=== PATIENT | female | born 1990 | race Two or more races ===

== ENCOUNTER 2023-10-19 13:02 | Outpatient (AMB) | payer OTHER, SELFPAY ==
--- NOTE | 2023-10-19 13:05 | A.OFFPC_ITS ---
Vital Signs 10/19/23 13:14 Height 5 ft 6.34 in Weight 137 lb 2 oz BMI 21.9 BP 102/74 Blood Pressure Location Rt brachial Position Sitting Respiration 12 Pulse 100 Pulse Source Pulse Oximeter Temp 98.7 F Temp Source Oral Pulse Oximetry (%) 97 Oxygen Delivery Method Room Air Intake Visit Reasons: GUS[facility] [employer]-[facility] C[facility] Intake Note: New patient visit Turkey Cleaner Required: No Is last menstrual period known: Yes Last menstrual period: 10/03/23 Allergies No Known Allergies Allergy (Verified 10/19/23 13:09) Tobacco use date assessed: 10/19/23 Dental Screening Dental Screen Date: 10/19/23 Did you have a dental visit in the last 12 months?: Yes Did you have a dental problem in the last 6 months where you did not have access to dental care?: No Was dental information given to patient?: Patient has dentist HPI HPI Comments History of Present Illness Details This is a 32-year-old female who presents to [facility]. It has been years since she had her last physical exam. She has 2 concerns to discuss. She endorses changes to her menstrual periods. She used to get a 5 day period. Two years ago she started to get spotting for a week followed by heavy bleeding for 2-3 days. She discuss this at her annual gynecological exam earlier this year. They recommended starting control. During the past 2 months she spots for 2 weeks, she has heavy bleeding for 2 days followed by a few more days of spotting. She is looking for evaluation. She has taken home tests that were negative. She has menstrual cramps that are at baseline since she was a teenager. She would like referral for evaluation for possible ADHD and autism. She has dealt with mental health issues for as long as she can remember. In 2009 she tried Zoloft for anxiety and depression. It made her feel tired. She does not recall it helped with anything. She endorses racing thoughts. She has a lot of things she needs to do and wants to do but there is a ?invisible wall? that prohibits her from being productive. She does not feel depressed. She also notices differences between her and other people in social situations. She has difficulty maintaining eye contact and holding conversations. She plans to schedule an eye exam. Dental is up-to-date. She works as a [employer], and she denies having a tetanus vaccination within the past 10 years. Tdap administered today. ROS: Constitutional: No unexplained weight loss, fever, chills or night sweats. Eyes: No vision changes, blurry vision, double vision, eye pain, eye redness, eye discharge. ENT: No hearing loss, sneezing, congestion, runny nose or sore throat. Respiratory: No shortness of breath, cough or sputum production. Cardiovascular: No chest pain, chest pressure or chest discomfort. No palpitations or pedal edema. Gastrointestinal: No anorexia, nausea, vomiting or diarrhea. No abdominal pain or blood in stool. Genitourinary: No dysuria, hematuria, urinary frequency. Neurologic: No headache, dizziness, syncope, unilateral weakness, ataxia, numbness or tingling in the extremities. Musculoskeletal: No muscle pain, back pain, joint pain or swelling. Hematologic/Lymphatics: No easy bruising. No painful lymph nodes. Skin: No rash or itching. Endocrine: No cold or heat intolerance. No polyuria or polydipsia. Psychiatric: No depression.. No SI/HI. Physical exam: Constitutional: Alert, in no distress. Head: Normocephalic. Eyes: Pupils are equal, round and reactive to light. Extraocular muscles intact. Ear, Nose and Throat: Canals clear. TMs normal. Normal nasal mucosa. No nasal discharge. No oral lesions. Neck: Supple, Full range of motion. No lymphadenopathy. No palpable thyroid masses. Respiratory: Clear to auscultation. Cardiovascular: S1 S2 regular. No murmurs. Gastrointestinal: Abdomen soft, non-tender, non-distended. Normal bowel sounds. No palpable masses. Neurologic: No focal neurological deficits. Symmetric patellar reflexes. Moves all extremities spontaneously. Sensation intact bilaterally. Skin: No rashes or lesions. Musculoskeletal: No gross deformities. Normal range of motion. Extremities: Warm and well perfused. No clubbing, cyanosis or edema. 3+ peripheral pulses bilaterally. Psychiatric: Cooperative [facility] Medical History (Updated 10/19/23 @ 15:08 by REMINGTON Marcus) Anxiety Behavior concern Difficulty concentrating Abnormal uterine bleeding (AUB) Surgical History (Updated 10/19/23 @ 13:33 by REMINGTON Marcus) History of wisdom tooth extraction History of mandibular surgery Family History (Updated 10/19/23 @ 14:52 by Louise Finch CMA) Mother Hypercholesteremia Benign brain tumor Father HTN (hypertension) Other FHx: mental illness Social History (Updated 10/19/23 @ 13:13 by Louise Finch CMA) Housing: Other Housing Other:: Mobile home Patient Tobacco Use Status: Never used Tobacco e-Cigarette/Vaping Use: Never Used Second Hand Smoke Exposure: Yes (past) service: No Current occupational status: employed Current occupation: clinical office technician Current occupational exposures/hazards: Yes (Rabies, brucellosis, cat scratch fever, ringworm, scabies, ect ) Cognitive needs: No Hearing needs: No Vision needs: Yes (glasses) Female Reproductive History Menstrual Date of last menstrual period: 10/03/23 Questionnaire PHQ-9 Over the last 2 weeks, how often have you been bothered by any of the following problems? 1. Little interest or pleasure in doing things: several days 2. Feeling down, depressed, or hopeless: several days 3. Trouble falling or staying asleep, or sleeping too much: several days 4. Feeling tired or having little energy: several days 5. Poor appetite or overeating: several days 6. Feeling bad about yourself - or that you are a failure or have let yourself or your family down: several days 7. Trouble concentrating on things, such as reading the newspaper or watching television: nearly every day 8. Moving or speaking so slowly that other people could have noticed. Or the opposite - being so fidgety or restless that you have been moving around a lot more than usual: more than half the days 9. Thoughts that you would be better off or of hurting yourself in some way: not at all Total score: 11 Depression Screening Interpretation: Positive (referral placed) Depression Screening Follow-up: Other Depression Screening Done: Yes 36417 - PHQ-9 Billing: Yes Source: Developed by Drs. Kuldip Villaseñor, Shazia Aguilar, Rashawn Crum and colleagues, with an educational alexander from [employer]. AUDIT C Alcohol Use Questionnaire (AUDIT-C) 1. How often do you have a drink containing alcohol?: Never 3. How often do you have six or more drinks on one occasion?: Never Total Score: 0 JAMARI-7 AMB Questionnaire JAMARI-7 Date JAMARI - 7 assessed: 10/19/23 Feeling nervous, anxious, or on edge: 3 = Nearly every day Not being able to stop or control worryin = Several days Worrying too much about different things: 2 = More than half the days Trouble relaxin = Several days Being so restless that it is hard to sit still: 2 = More than half the days Becoming easily annoyed or irritable: 1 = Several days Feeling afraid as if something awful might happen: 1 = Several days Total JAMARI-7 score (0-4 normal; 5-9 mild; 10-14 moderate; 15-21 severe): 11 Source: Developed by Drs. Kuldip Villaseñor, Shazia Aguilar, Rashawn Crum and colleagues, with an educational alexander from [employer]. JAMARI-7 Assessment Billing JAMARI-7 Assessment Tool: JAMARI-7 Assessment 66612 Physical exam (Primary Care) Vital Signs: Last Vital Signs Temp 98.7 F 10/19/23 13:14 Pulse 100 10/19/23 13:14 Resp 12 10/19/23 13:14 BP 102/74 10/19/23 13:14 Pulse Ox 97 10/19/23 13:14 Oxygen Delivery Method Room Air 10/19/23 13:14 BMI result Body Mass Index 21.9 Tobacco/Smoking Status: Tobacco use Status Tobacco use date assessed 10/19/23 10/19/23 13:17 Patient Tobacco Use Status Never used Tobacco 10/19/23 13:17 e-Cigarette/Vaping Use Never Used 10/19/23 13:17 PHQ-9: PHQ-9 Score PHQ-9: Total score 11 10/19/23 14:52 Depression Screening Interpretation: Positive (referral placed) Depression Screening Follow-up: Other Assessment and Plan Assessment & Plan (1) Routine physical examination: Code(s): Z00.00 - Encounter for general adult medical examination without abnormal findings Plan: Patient is seen today for a routine physical. As part of this visit we reviewed the following issues, which are considered and essential part of preventative health in this age group: - Annual Associate Professor [employer] exam - Blood pressure screening - Cholesterol screening - Osteoporosis prevention including calcium/vitamin D intake, weight bearing exercise & smoking cessation - Nutritional and exercise counseling - Screening for depression - Prevention of and/or testing for infectious diseases - declined screening - Education about skin cancer - Recommendations about immunizations - Recommendation of an eye exam - Screening for substance abuse (2) Abnormal uterine bleeding (AUB): Code(s): N93.9 - Abnormal uterine and vaginal bleeding, unspecified Plan: Check TSH and pelvic u/s then follow up with operational test mechanic at [facility]. (3) Difficulty concentrating: Code(s): R41.840 - Attention and concentration deficit Plan: Referred to behavioral health services. (4) Behavior concern: Code(s): R46.89 - Other symptoms and signs involving appearance and behavior Plan: Referred to behavioral health services. (5) Anxiety: Code(s): F41.9 - Anxiety disorder, unspecified Orders: Orders TDaP Immunization Today Z23 - Encounter for immunization Lipid Panel Today Z13.6 - Encounter for screening for cardiovascular disorders TSH reflex Free T4 Today E66.9 - Obesity, unspecified, F41.9 - Anxiety disorder, unspecified, N93.9 - Abnormal uterine and vaginal bleeding, unspecified, R41.840 - Attention and concentration deficit, R46.89 - Other symptoms and signs involving appearance and behavior Comprehensive Met. Panel Today F41.9 - Anxiety disorder, unspecified, N93.9 - Abnormal uterine and vaginal bleeding, unspecified, R41.840 - Attention and concentration deficit, R46.89 - Other symptoms and signs involving appearance and behavior Complete Blood Count no Diff Today F41.9 - Anxiety disorder, unspecified, N93.9 - Abnormal uterine and vaginal bleeding, unspecified, R41.840 - Attention and concentration deficit, R46.89 - Other symptoms and signs involving appearance and behavior US pelvic and transvaginal Today N93.9 - Abnormal uterine and vaginal bleeding, unspecified HCG Quantitative Today N93.9 - Abnormal uterine and vaginal bleeding, unspecified Referrals Psychology Referral F41.9 - Anxiety disorder, unspecified, N93.9 - Abnormal uterine and vaginal bleeding, unspecified, R41.840 - Attention and concentration deficit, R46.89 - Other symptoms and signs involving appearance and behavior Medications: New Boostrix Tdap (diphth,pertus(acell),tetanus) 0.5 mL IM ONCE 0.5 mL 0RF NS Z23 - Encounter for immunization Coding Level of Care Code New Pt Prev Care 18-39yr([id number] Diagnoses Routine physical examination Z00.00 Abnormal uterine bleeding (AUB) N93.9 Difficulty concentrating R41.840 Behavior concern R46.89 Anxiety F41.9 Additional Codes JAMARI-7 Assessment Billing - JAMARI-7 Assessment Tool: JAMARI-7 Assessment 53970 ([id number])
[2023-10-19 13:14] VITALS: BP 102/74; PULSE 100; RESP 12; TEMP 37.1; O2SAT 97; BMI 21.9
== END 2023-10-19 13:59 | disposition home or self-care (01) ==
PROVIDERS: PCP Physician Assistant Medical; Visit Provider Physician Assistant Medical
DX: Z00.00 Encounter for general adult medical examination without abnormal findings (principal); N93.9 Abnormal uterine and vaginal bleeding, unspecified; R41.840 Attention and concentration deficit; Z23 Encounter for immunization; R46.89 Other symptoms and signs involving appearance and behavior; F41.9 Anxiety disorder, unspecified
CPT/HCPCS: 90471; 90715; 99385

== ENCOUNTER 2023-10-27 11:01 | Outpatient (REF) | payer OTHER, SELFPAY ==
[2023-10-27 12:55] LABS: Hematocrit 39.5 % (37.0-47.0); Hemoglobin 13.2 g/dl (12.0-16.0); Mean Corpuscular HGB Conc 33.4 g/dl (31.0-35.0); Mean Corpuscular Hemoglobin 29.8 pg (27.0-33.0); Mean Corpuscular Volume 89.2 fL (80.0-98.0); Mean Platelet Volume 11.7 fL (9.4-12.3); Platelet Count 254 X10*3/uL (160-400); Red Blood Count 4.43 X10*6/uL (4.20-5.50); Red Cell Distribution Width 12.6 % (11.0-16.0); White Blood Count 4.6 X10*3/uL (4.8-10.8)
[2023-10-27 13:28] LABS: Alanine Aminotransferase 12 U/L (0-31); Albumin Level 4.3 g/dL (3.5-5.0); Alkaline Phosphatase 66 U/L (39-117); Anion Gap 12 (12-20); Aspartate Amino Transferase 15 U/L (5-31); Bilirubin Total 0.6 mg/dL (0.0-1.0); Blood Urea Nitrogen 10 mg/dL (9-16); Calcium 9.2 mg/dL (8.4-10.2); Carbon Dioxide 21 mmol/L (22-29); Chloride 109 mmol/L (96-108); Cholesterol 174 mg/dL (<200); Estimated Glomerular Filt Rate > 60; Glucose Random 89 mg/dL (60-115); HDL Cholesterol 55 mg/dL (>40); LDL Cholesterol Calculated 103 mg/dL (<100); Potassium 4.1 mmol/L (3.3-5.1); Sodium 138 mmol/L (135-145); Total Protein 7.1 g/dL (6.5-8.0); Triglycerides 83 mg/dL (<150)
[2023-10-27 13:49] LABS: HCG Quantitative < 2 mIU/mL; TSH reflex Free T4 1.16 uIU/mL (0.32-4.0)
== END 2023-10-27 11:02 | disposition home or self-care (01) ==
LOC: HO.HMGCLDS 11:01
PROVIDERS: PCP Physician Assistant Medical; Visit Provider Physician Assistant Medical
DX: Z13.6 Encounter for screening for cardiovascular disorders (principal); F41.9 Anxiety disorder, unspecified; R41.840 Attention and concentration deficit; N93.9 Abnormal uterine and vaginal bleeding, unspecified; E66.9 Obesity, unspecified
CPT/HCPCS: 36415; 80053; 80061; 84443; 84702; 85027

== ENCOUNTER 2023-11-23 12:49 | Outpatient (REF) | payer OTHER, SELFPAY ==
--- NOTE | ~2023-11-23 | US_ITS ---
EXAMINATION: US PELVIS CLINICAL INFORMATION: Abnormal uterine bleeding COMPARISON: None available. TECHNIQUE: The pelvis was evaluated using transabdominal and transvaginal imaging. FINDINGS: The uterus measures 7.5 x 3.4 x 4.3 cm in longitudinal by AP by transverse dimension. The endometrial stripe is not thickened and measures 0.7 cm. The left ovary measures approximately 2.7 x 2.1 x 2.9 cm and is normal. The right ovary measures approximately 3.2 x 2.5 x 3.8 cm and contains a simple appearing 1.7 cm cyst. There is no free fluid in the pelvis. US/US pelvic and transvaginal IMPRESSION: 1. Normal thickness endometrial stripe. 2. Simple appearing 1.7 cm right ovarian cyst. Electronically signed by: Michelet Rosenbaum MD 12/13/2023 07:07 AM EDT
== END 2023-11-23 12:50 | disposition home or self-care (01) ==
LOC: HO.HMGCX 12:49
PROVIDERS: PCP Physician Assistant Medical; Visit Provider Physician Assistant Medical
DX: N93.9 Abnormal uterine and vaginal bleeding, unspecified (principal)
CPT/HCPCS: 76830; 76856

== ENCOUNTER 2024-12-29 10:34 | Outpatient (REF) | payer OTHER, SELFPAY ==
[2024-12-29 14:12] LABS: MANUAL DIFF FLAG NO
[2024-12-29 14:18] LABS: Hematocrit 41.0 % (37.0-47.0); Hemoglobin 13.5 g/dl (12.0-16.0); Imm Gran Abs Auto 0.01 X10*3/uL (0.00-0.03); Imm Gran Pct Auto 0.2 % (0.0-0.4); Lymphocytes Absolute Auto 1.2 X10*3/uL (1.2-4.9); Mean Corpuscular HGB Conc 32.9 g/dl (31.0-35.0); Mean Corpuscular Hemoglobin 29.4 pg (27.0-33.0); Mean Corpuscular Volume 89.3 fL (80.0-98.0); NRBC Abs Auto 0.000 X10*3/uL (0.0-0.012); NRBC Pct Auto 0.0 /100WBC (0.0-0.2); Platelet Count 270 X10*3/uL (160-400); Red Blood Count 4.59 X10*6/uL (4.20-5.50); White Blood Count 4.8 X10*3/uL (4.8-10.8)
[2024-12-29 14:30] LABS: Anion Gap 11 (12-20); Blood Urea Nitrogen 13 mg/dL (9-16); Calcium 9.3 mg/dL (8.4-10.2); Carbon Dioxide 24 mmol/L (22-29); Chloride 108 mmol/L (96-108); Estimated Glomerular Filt Rate > 60; Potassium 4.0 mmol/L (3.3-5.1); Sodium 139 mmol/L (135-145)
[2024-12-30 09:08] LABS: Follicle Stimulating Hormone 5.1 mIU/mL
[2025-01-05 15:48] LABS: Vitamin D 25-OH, D2 8 ng/mL; Vitamin D 25-OH, D3 12 ng/mL; Vitamin D 25-OH, Total 20 ng/mL (30-100)
== END 2024-12-29 10:35 | disposition home or self-care (01) ==
LOC: HO.WFDLDS 10:34
PROVIDERS: PCP Physician Assistant Medical; Visit Provider Physician Assistant Medical
DX: Z00.00 Encounter for general adult medical examination without abnormal findings (principal); R46.89 Other symptoms and signs involving appearance and behavior; N93.9 Abnormal uterine and vaginal bleeding, unspecified; F41.9 Anxiety disorder, unspecified
CPT/HCPCS: 36415; 80048; 82306; 82672; 83001; 83002; 84443; 85025; 96127

== ENCOUNTER 2024-12-29 10:34 | Outpatient (AMB) | payer OTHER, SELFPAY ==
--- NOTE | 2024-12-29 10:39 | MHC.PC.OV ---
Vital Signs 12/29/24 10:42 Height 5 ft 6 in Weight 148 lb BMI 23.9 BP 110/82 Blood Pressure Location Rt brachial Position Sitting Respiration 14 Pulse 107 H Pulse Source Pulse Oximeter Temp 97.8 F Temp Source Temporal Artery Scan Pulse Oximetry (%) 97 Oxygen Delivery Method Room Air Intake Visit Reasons: Annual PE Intake Note: Abril presents in the office today for her annual physical. Allergies No Known Allergies Allergy (Verified 12/29/24 10:42) Medication List - Last Reconciled 12/29/24 by REMINGTON Marcus No Known Home Meds Tobacco use date assessed: 12/29/24 Dental Screening Dental Screen Date: 12/29/24 Did you have a dental visit in the last 12 months?: Yes Did you have a dental problem in the last 6 months where you did not have access to dental care?: No Was dental information given to patient?: Patient has dentist HPI HPI Comments History of Present Illness Details This is a 34-year-old female who presents for a physical exam. She would like referral for evaluation for possible ADHD and autism. She has dealt with mental health issues for as long as she can remember. In 2009 she tried Zoloft for anxiety and depression. It made her feel tired. She does not recall it helped with anything. She endorses racing thoughts. PHQ9 is positive. She also notices differences between her and other people in social situations. She has difficulty maintaining eye contact and holding conversations. I referred her to behavioral health last year, but she says she don't not get called though in EMR it is documented that a voicemail was left. She saw Gynecology, and they discussed abnormal uterine bleeding after our visit last year. 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 Her provider recommended monitoring and calling if it is more than 35 days between cycles. She does worry about this because her mother had early menopause. She would like hormones checked today. LMP 4 days long 2 weeks ago. She plans to schedule an eye exam. Dental is up-to-date. Last Tdap 2023. ROS: Constitutional: No unexplained weight loss, fever, chills or night sweats. +fatigue. Eyes: No vision changes, blurry vision, double vision, eye pain, eye redness, eye discharge. ENT: No hearing loss, sneezing, congestion, runny nose or sore throat. Respiratory: No shortness of breath, cough or sputum production. Cardiovascular: No chest pain, chest pressure or chest discomfort. No palpitations or pedal edema. Gastrointestinal: No anorexia, nausea, vomiting or diarrhea. No abdominal pain or blood in stool. Genitourinary: No dysuria, hematuria, urinary frequency. Neurologic: No headache, dizziness, syncope, unilateral weakness, ataxia, numbness or tingling in the extremities. Musculoskeletal: No muscle pain, back pain, joint pain or swelling. Hematologic/Lymphatics: No easy bruising. No painful lymph nodes. Skin: No rash Endocrine: No cold or heat intolerance. No polyuria or polydipsia. Psychiatric: see HPI Physical exam: Constitutional: Alert, in no distress. Head: Normocephalic. Eyes: Pupils are equal, round and reactive to light. Extraocular muscles intact. Ear, Nose and Throat: Canals clear. TMs normal. Normal nasal mucosa. No nasal discharge. No oral lesions. Neck: Supple, Full range of motion. No lymphadenopathy. No palpable thyroid masses. Respiratory: Clear to auscultation. Cardiovascular: S1 S2 regular. No murmurs. Gastrointestinal: Abdomen soft, non-tender, non-distended. Normal bowel sounds. No palpable masses. Neurologic: No focal neurological deficits. Symmetric patellar reflexes. Moves all extremities spontaneously. Sensation intact bilaterally. Skin: No rashes Musculoskeletal: No gross deformities. Normal range of motion. Extremities: Warm and well perfused. No clubbing, cyanosis or edema. Intact peripheral pulses bilaterally. Psychiatric: Cooperative [facility] Medical History (Updated 12/29/24 @ 11:18 by REMINGTON Marcus) Routine physical examination Anxiety Behavior concern Difficulty concentrating Abnormal uterine bleeding (AUB) Surgical History (Updated 10/19/23 @ 13:33 by REMINGTON Marcus) History of wisdom tooth extraction History of mandibular surgery Family History (Updated 12/29/24 @ 11:06 by REMINGTON Marcus) Mother Hypercholesteremia Benign brain tumor Father HTN (hypertension) Epilepsy Other FHx: mental illness Social History (Updated 12/29/24 @ 10:42 by Julieth Newsome MA) Housing: Other Housing Other:: Mobile home Alcohol intake: current Patient Tobacco Use Status: Never used Tobacco e-Cigarette/Vaping Use: Never Used Second Hand Smoke Exposure: Yes (past) service: No Current occupational status: employed Current occupation: [employer] Current occupational exposures/hazards: Yes (Rabies, brucellosis, cat scratch fever, ringworm, scabies, ect ) Cognitive needs: No Hearing needs: No Vision needs: Yes (glasses) Questionnaire PHQ-9 Over the last 2 weeks, how often have you been bothered by any of the following problems? 1. Little interest or pleasure in doing things: several days 2. Feeling down, depressed, or hopeless: several days 3. Trouble falling or staying asleep, or sleeping too much: several days 4. Feeling tired or having little energy: more than half the days 5. Poor appetite or overeating: several days 6. Feeling bad about yourself - or that you are a failure or have let yourself or your family down: not at all 7. Trouble concentrating on things, such as reading the newspaper or watching television: several days 8. Moving or speaking so slowly that other people could have noticed. Or the opposite - being so fidgety or restless that you have been moving around a lot more than usual: not at all 9. Thoughts that you would be better off or of hurting yourself in some way: not at all Total score: 7 Depression Screening Interpretation: Positive Depression Screening Follow-up: Other (Referral placed) Depression Screening Done: Yes 06404 - PHQ-9 Billing: Yes Source: Developed by Drs. Kuldip Villaseñor, Shazia Aguilar, Rashawn Crum and colleagues, with an educational alexander from [employer]. Thrive Questionnaire Date Thrive assessed: 12/29/24 I am a: Patient What is your living situation today?: I have a steady place to live Within the past 12 months, did the food you bought not last and you didn't have the money to get more?: Never true Within the past 12 months, did you worry whether your food would run out before you got money to buy more?: Never true Do you have trouble paying for medicines?: No Do you have trouble getting transportation to medical appointments?: No Do you have trouble paying your heating and electricity bill?: No Do you have trouble taking care of your child, family member or friend?: No Do you have trouble with day-to-day activities such as bathing, preparing meals, shopping, managing finances, etc.?: I choose not to answer this question Are you currently unemployed and looking for a job?: No Are you interested in more education?: Yes Please select the resources that you would like help with: None Currently or been in a relationship where the following occur: No concerns reported THRIVE Score: 0 AUDIT C Alcohol Use Questionnaire (AUDIT-C) 1. How often do you have a drink containing alcohol?: Monthly or less 2. How many drinks containing alcohol do you have on a typical day when you are drinking?: 1 or 2 3. How often do you have six or more drinks on one occasion?: Never Total Score: 1 JAMARI-7 AMB Questionnaire JAMARI-7 Date JAMARI - 7 assessed: 12/29/24 Feeling nervous, anxious, or on edge: 2 = More than half the days Not being able to stop or control worryin = More than half the days Worrying too much about different things: 3 = Nearly every day Trouble relaxin = Several days Being so restless that it is hard to sit still: 1 = Several days Becoming easily annoyed or irritable: 1 = Several days Feeling afraid as if something awful might happen: 0 = Not at all Total JAMARI-7 score (0-4 normal; 5-9 mild; 10-14 moderate; 15-21 severe): 10 Source: Developed by Drs. Kuldip Villaseñor, Shazia Aguilar, Rashawn Crum and colleagues, with an educational alexander from [employer]. JAMARI-7 Assessment Billing JAMARI-7 Assessment Tool: JAMARI-7 Assessment 36365 Physical exam (Primary Care) Vital Signs: Last Vital Signs Temp 97.8 F 12/29/24 10:42 Pulse 107 H 12/29/24 10:42 Resp 14 12/29/24 10:42 BP 110/82 12/29/24 10:42 Pulse Ox 97 12/29/24 10:42 Oxygen Delivery Method Room Air 12/29/24 10:42 BMI result Body Mass Index 23.9 Tobacco/Smoking Status: Tobacco use Status Tobacco use date assessed 12/29/24 12/29/24 10:45 Patient Tobacco Use Status Never used Tobacco 12/29/24 10:42 e-Cigarette/Vaping Use Never Used 12/29/24 10:42 PHQ-9: PHQ-9 Score PHQ-9: Total score 7 12/29/24 10:41 Depression Screening Interpretation: Positive Depression Screening Follow-up: Other (Referral placed) Thrive Assessment: Date of Thrive Assessment Date Thrive assessed 12/29/24 12/29/24 10:41 Currently or been in a relationship where the following occur: No concerns reported Coding Level of Care Code Est Pt Prev Care 18-39y(60276) Diagnoses Routine physical examination Z00.00 Abnormal uterine bleeding (AUB) N93.9 Behavior concern R46.89 Anxiety F41.9 Additional Codes JAMARI-7 Assessment Billing - JAMARI-7 Assessment Tool: JAMARI-7 Assessment 67384 ([id number]) PHQ-9 - 58668 - PHQ-9 Billing: Yes ([id number]) Assessment & Plan Assessment & Plan (1) Routine physical examination: Code(s): Z00.00 - Encounter for general adult medical examination without abnormal findings Category: Medical Plan: Patient is seen today for a routine physical. As part of this visit we reviewed the following issues, which are considered and essential part of preventative health in this age group: - Breast Cancer screening - Annual Stumper Feller exam - Blood pressure screening - Cholesterol screening - Osteoporosis prevention including calcium/vitamin D intake, weight bearing exercise & smoking cessation - Nutritional and exercise counseling - Counseling of injury prevention including fire prevention, smoke alarms and seat belt usage - Screening for depressions - Education about skin cancer - Recommendations about immunizations - Recommendation of an eye exam - Screening for substance abuse (2) Abnormal uterine bleeding (AUB): Code(s): N93.9 - Abnormal uterine and vaginal bleeding, unspecified Category: Medical Plan: Patient was evaluated by specialty finishing utility person. Ordered repeat TSH and vitamin-D, FSH, LH and estrogen. (3) Behavior concern: Code(s): R46.89 - Other symptoms and signs involving appearance and behavior Category: Medical Plan: Patient referred anew to behavioral health. I advised her to contact the office if she does not hear about this within 2 weeks. (4) Anxiety: Code(s): F41.9 - Anxiety disorder, unspecified Category: Medical Plan Schedule physical exam in 1 year. Orders: Orders Lutenizing Hormone Today N93.9 - Abnormal uterine and vaginal bleeding, unspecified Estrogen Today N93.9 - Abnormal uterine and vaginal bleeding, unspecified Complete Blood Count Auto Diff Today N93.9 - Abnormal uterine and vaginal bleeding, unspecified TSH reflex Free T4 Today N93.9 - Abnormal uterine and vaginal bleeding, unspecified Follicle Stimulating Hormone Today N93.9 - Abnormal uterine and vaginal bleeding, unspecified Basic Metabolic Panel Today N93.9 - Abnormal uterine and vaginal bleeding, unspecified Vitamin D 25-OH (D2 and D3) Today F41.9 - Anxiety disorder, unspecified, N93.9 - Abnormal uterine and vaginal bleeding, unspecified, Z00.00 - Encounter for general adult medical examination without abnormal findings Referrals Psychology Referral F41.9 - Anxiety disorder, unspecified, R41.840 - Attention and concentration deficit, R46.89 - Other symptoms and signs involving appearance and behavior
[2024-12-29 10:42] VITALS: BP 110/82; PULSE 107; RESP 14; TEMP 36.6; O2SAT 97; BMI 23.9
== END 2024-12-29 11:15 | disposition home or self-care (01) ==
PROVIDERS: PCP Physician Assistant Medical; Visit Provider Physician Assistant Medical
DX: Z00.00 Encounter for general adult medical examination without abnormal findings (principal); N93.9 Abnormal uterine and vaginal bleeding, unspecified; R46.89 Other symptoms and signs involving appearance and behavior; F41.9 Anxiety disorder, unspecified